=== PATIENT | female | born 1990 | race Caucasian/White ===

== ENCOUNTER 2016-08-11 10:55 | Outpatient (CLI) | payer OTHER | END 2016-08-11 23:59 | disposition home or self-care (01) | DX: Z36 Encounter for antenatal screening of mother (principal) ==

== ENCOUNTER 2016-09-06 02:07 | Inpatient (IN) | payer OTHER ==
[2016-09-06] MEDS ORDERED: SODIUM CHLORIDE FLUSH 0.9% 10 ML SYRINGE IVP PRN (02:50)
[2016-09-06] MEDS ORDERED: fentaNYL 100 MCG/2 ML VIAL IVP PRN (02:50)
[2016-09-06] MEDS ORDERED: ONDANSETRON 4 MG/2 ML VIAL IVP PRN ×2 (02:50→05:16)
[2016-09-06] MEDS ORDERED: LACTATED RINGERS 1,000 ML IV ONE (02:57)
[2016-09-06] MEDS ORDERED: OXYTOCIN/LACTATED RINGERS 250 ML IV SCH (04:00)
[2016-09-06] MEDS ORDERED: SUFENTA/BUPIV 0.4 MCG/0.0625% 150 ML EP ONE (04:22)
[2016-09-06] MEDS ORDERED: diphenhydrAMINE INJ 50 MG/ML VIAL IVP PRN (05:16)
[2016-09-06] MEDS ORDERED: NALBUPHINE 20 MG/ML AMP IVP PRN (05:16)
[2016-09-06] MEDS ORDERED: SUFENTA/BUPIV 0.4 MCG/0.0625% EPIDURAL 150 ML EP PRN (05:16)
[2016-09-06] MEDS ORDERED: LACTATED RINGERS 500 ML IV SCH (05:16)
[2016-09-06] MEDS ORDERED: ePHEDrine 50 MG/ML AMP IVP PRN (05:16)
[2016-09-06] MEDS ORDERED: METOCLOPRAMIDE 10 MG/2 ML VIAL IVP PRN (05:16)
[2016-09-06] MEDS ORDERED: NALOXONE 0.4 MG/ML VIAL IVP PRN (05:16)
[2016-09-06] MEDS: LACTATED RINGERS 1,000 ML IV SCH ×2 (10:09→10:10)
[2016-09-06] MEDS ORDERED: LIDOCAINE 1% 50 ML MDV ONE (12:06)
[2016-09-06] MEDS ORDERED: OXYTOCIN/LACTATED RINGERS 250 ML IV ONE (12:55)
[2016-09-06] MEDS ORDERED: LACTATED RINGERS 1,000 ML IV SCH (13:00)
[2016-09-06] MEDS: IBUPROFEN 600 MG TABLET PO SCH ×2 (13:37→20:14)
[2016-09-06] MEDS: ACETAMINOPHEN 500 MG TABLET PO SCH ×2 (15:30→23:34)
[2016-09-06] MEDS: DOCUSATE SODIUM 100 MG CAPSULE PO SCH (22:43)
[2016-09-07] MEDS: IBUPROFEN 600 MG TABLET PO SCH ×4 (02:41→22:01)
[2016-09-07] MEDS: DOCUSATE SODIUM 100 MG CAPSULE PO SCH ×2 (08:30→22:01)
[2016-09-07] MEDS: ACETAMINOPHEN 500 MG TABLET PO SCH ×3 (08:31→23:33)
[2016-09-07] MEDS: HYDROCORTISONE/PRAMOXINE 10 GM PR PRN ×2 (16:05)
[2016-09-08] MEDS: IBUPROFEN 600 MG TABLET PO SCH (04:32)
[2016-09-08] MEDS: ACETAMINOPHEN 500 MG TABLET PO SCH (08:04)
[2016-09-08] MEDS: DOCUSATE SODIUM 100 MG CAPSULE PO SCH (08:04)
== END 2016-09-08 11:10 | disposition home or self-care (01) | DRG 775 ==
PROC: 0KQM0ZZ Repair Perineum Muscle, Open Approach (ICD-10-PCS; principal; 2016-09-06)
PROC: 10E0XZZ Delivery of Products of Conception, External Approach (ICD-10-PCS; principal; 2016-09-06)
DX: O70.1 Second degree perineal laceration during delivery (principal); Z37.0 Single live birth; O69.81X0 Labor and delivery complicated by cord around neck, without compression, not applicable or unspecified; Z3A.40 40 weeks gestation of pregnancy